=== PATIENT | female | born 1990 | race Caucasian/White ===

== ENCOUNTER 2017-12-26 20:28 | Inpatient (IN) | payer SELFPAY ==
[2017-12-27] MEDS ORDERED: MAGNESIUM HYDROXIDE 30 ML UDCUP PO PRN (00:17)
[2017-12-27] MEDS ORDERED: MAG HYDROX/AL HYDROX/SIMETH 30 ML UDCUP PO PRN (00:17)
[2017-12-27] MEDS: NICOTINE POLACRILEX 2 MG GUM B PRN ×2 (00:51→09:40)
[2017-12-27] MEDS: LORazepam 0.5 MG TAB PO PRN ×2 (00:51→09:53)
[2017-12-27] MEDS: ACETAMINOPHEN 325 MG TAB PO PRN (01:04)
[2017-12-27] MEDS: SERTRALINE HCL 100 MG TAB PO SCH (09:41)
[2017-12-27] MEDS: NICOTINE 21 MG/24 HR PATCH TD SCH (12:00)
[2017-12-27] MEDS ORDERED: PROMETHAZINE HCL 25 MG TAB PO PRN (13:18)
[2017-12-27] MEDS ORDERED: PROMETHAZINE HCL 25 MG SUPPR PR PRN (13:18)
[2017-12-27] MEDS ORDERED: THIAMINE HCL 100 MG TAB PO ONE ×2 (13:18→17:30)
[2017-12-27] MEDS: OXYMETAZOLINE 30 ML NASAL SPRAY EACHNARE PRN ×2 (15:08→19:14)
[2017-12-27] MEDS: chlordiazePOXIDE 25 MG CAP PO PRN (15:23)
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
--- NOTE | 2017-12-27 16:44 | BCON ---
[f rep st] BEHAVIORAL HEALTH CONSULTATION INTERNAL MEDICINE CONSULTATION DATE OF CONSULTATION: 12/27/2017 REFERRING PHYSICIAN: Julius Lombardo MD REASON FOR REFERRAL: Medical clearance for inpatient behavioral health stay. HISTORY OF PRESENT ILLNESS: This patient presented to [facility] in [place] complaining of hearing voices and suicidal ideation with thoughts of driving her car into other cars on the road. She was evaluated in the emergency department and transferred to [facility] for further psychiatric care. Currently, she is without any acute complaints. PAST MEDICAL HISTORY: Fibromyalgia, depression. PAST SURGICAL HISTORY: She has had wisdom teeth extracted. MEDICATIONS: Prior to admission: 1. Sertraline 100 mg daily, which had recently been increased from 50 mg daily. 2. Acetaminophen for fibromyalgia pain. SOCIAL HISTORY: She is and lives with her and 2 children. 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 She is a nonsmoker. She uses considerable alcohol. FAMILY HISTORY: There is a family history of schizophrenia. REVIEW OF SYSTEMS: She reports that she has had poor sleep. She says that the fibromyalgia pain interferes with her sleep and she awakens and has to change position. She says she cannot have her knees touching each other but sleeps with a large pillow between her knees. She denies symptoms of restless leg at night or periodic limb movements that awaken her. She currently has fibromyalgia pain and is satisfied with taking acetaminophen for now. She intends to see her primary care provider in the future for better pain control. She is recovering from an upper respiratory infection and has an occasional cough with occasional sputum. She denies dyspnea. Otherwise, a 10-point review of systems was negative. PHYSICAL EXAM: VITAL SIGNS: Blood pressure is 135/100, heart rate is 100, respiratory rate is 14, oxygen saturation is 96% on room air. Temperature is 36.3 degrees centigrade. Her weight is 72.6 kg for a body mass index of 26.6. GENERAL: This is a slightly overweight woman who appears her chronologic age, cooperative and in no acute distress. HEENT: She has multiple piercings including her tongue. Extraocular movements are intact. Pupils are equal, round, reactive to light. Mucous membranes are moist. Dentition is in good condition. She has an uncrowded airway, Mallampati class 1. Her tonsils are moderately enlarged. NECK: Supple. HEART: Regular rate and rhythm with no murmurs, rubs, or gallops. LUNGS: Clear to auscultation bilaterally. ABDOMEN : Soft, nontender, nondistended with normoactive bowel sounds. EXTREMITIES: There is no cyanosis, clubbing, or edema. Radial and dorsalis pedis pulses are 2+ bilaterally. NEUROLOGIC: She is alert and oriented x3. Cranial nerves 2- 12 are grossly intact. There is no focal weakness. Sensation is intact to light touch. Gait is within normal limits. There is no tremor. LABORATORY STUDIES: From the emergency department in [place], she had a very slightly elevated serum sodium of 146 and an elevated serum chloride at 111, and there was a low carbon dioxide at 18. There was an elevated anion gap at 17. Glucose was slightly elevated, but this was likely not fasting. Otherwise , renal function and electrolytes were within normal limits. Liver function tests were normal. Serum ethanol level was 249 mg/dL. Salicylates and acetaminophen were undetectable. Urine drug screen was negative for any substances of abuse. CBC showed an elevated white count at 12.4, there was no left shift. test was negative. EKG was normal. Urinalysis was dilute with a low specific gravity, there were small leukocytes, but otherwise was within normal limits. ASSESSMENT/RECOMMENDATIONS: 1. Mental health issues, pending further evaluation and management by Psychiatry and the mental health team. 2. Fibromyalgia, per her history. This may be exacerbated by sleep disturbance. Query whether alcohol use is contributing to sleep disturbance. Psychiatry might consider use of a tricyclic or duloxetine for dual affect on depression or anxiety as well as pain reduction in fibromyalgia. However, her mental health stabilization is first priority, so whatever is most appropriate for that is what should be used. She plans to follow up with a paint booth operator after her discharge. 3. Alcohol use disorder. She might benefit from specific substance abuse counseling. 4. Possible alcohol withdrawal with an elevated blood pressure and borderline tachycardia. She otherwise is currently without any signs or symptoms of alcohol withdrawal, including no diaphoresis and no tremor. She is being treated, however, with chlordiazepoxide and received lorazepam this morning. Continuing observation for signs or symptoms of alcohol withdrawal and use of benzodiazepine is appropriate. 5. Hypernatremia and anion gap are likely due to alcohol intoxication. There is no need for further testing. I see no medical contraindications for this patient's continued stay on the inpatient behavioral health unit or to any psychiatric medications or procedures. Thank you very much for including me in the care of this patient. Please do not hesitate to contact me or the hospitalist service should there be need for further medical evaluation. /[id number]/MODL MTDD
[2017-12-27] MEDS ORDERED: traZODone 50 MG TAB PO PRN (17:33)
[2017-12-27] MEDS: MELATONIN 3 MG TAB PO PRN (19:10)
[2017-12-27] MEDS: OLANZapine 5 MG TAB PO PRN (19:10)
[2017-12-28] MEDS: OXYMETAZOLINE 30 ML NASAL SPRAY EACHNARE PRN ×3 (05:59→19:22)
[2017-12-28] MEDS: chlordiazePOXIDE 25 MG CAP PO PRN (09:00)
[2017-12-28] MEDS: SERTRALINE HCL 100 MG TAB PO SCH (09:01)
[2017-12-28] MEDS: THIAMINE HCL 100 MG TAB PO SCH (09:01)
[2017-12-28] MEDS: MULTIVITAMINS 1 EACH TAB PO SCH (09:01)
[2017-12-28] MEDS: FOLIC ACID 1 MG TAB PO SCH (09:02)
[2017-12-28] MEDS: NICOTINE 21 MG/24 HR PATCH TD SCH (09:02)
[2017-12-28] MEDS: NICOTINE POLACRILEX 2 MG GUM B PRN (09:02)
[2017-12-28] MEDS: OLANZapine 5 MG TAB PO PRN ×2 (12:07→17:08)
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
[2017-12-28] MEDS: MELATONIN 3 MG TAB PO PRN (22:08)
[2017-12-29] MEDS: MULTIVITAMINS 1 EACH TAB PO SCH (08:31)
[2017-12-29] MEDS: SERTRALINE HCL 100 MG TAB PO SCH (08:31)
[2017-12-29] MEDS: THIAMINE HCL 100 MG TAB PO SCH (08:31)
[2017-12-29] MEDS: FOLIC ACID 1 MG TAB PO SCH (08:31)
[2017-12-29] MEDS: OXYMETAZOLINE 30 ML NASAL SPRAY EACHNARE PRN ×2 (08:32→18:35)
[2017-12-29] MEDS: NICOTINE 21 MG/24 HR PATCH TD SCH (08:33)
[2017-12-29] MEDS: OLANZapine 5 MG TAB PO PRN ×3 (09:01→21:07)
--- NOTE | 2017-12-29 13:52 | SOAPPROG ---
SOAP Progress Note Assessment/Plan: Assessment: 27 yo woman with h/o depression, anxiety, trauma, polysubstance dependence. Plan: 12/28/17 16:17 1. Continue on CIWA with Librium PRN 2. Patient also c/o "voices" that are usually just "mumbling" or back ground noise, but says they are "worse" when she isn't drinking alcohol. She took Zyprexa PRN last night and says they "went away." 3. Reports that melatonin was "helping" with her sleep. 4. Patient denies any SI/HI 12/29/17 13:47 1. Patient reports the "best night of sleep of my life" last night. She slept for 9.5 hrs. She says the combo of Zyprexa and melatonin were "wonderful." 2. Patient still reports "background white noise" and sometimes hearing music, but these are usually when she's following asleep or waking up. Not clear if these are psychotic features related to depression or just hypnogogic and hypnopompic hallucinations. She says taking Zyprexa "helps alot." 3. Plan to f/u at [facility] in [place]. 4. Agrees to sign in voluntary 5. Anticipate d/c on Sunday or Sunday Subjective: Met with patient, reviewed chart and d/w staff. Patient says she is sleeping "much better" and reports less anxiety. She denies any panic episodes. She also denies any w/d related sxs. Her CIWA this AM was 9, mostly for anxiety, which she says is "much worse in morning" and gets "better" throughout the day. Her BP was 122/77 and HR was 102. She says she still thinks about suicide, but denies any plan or intent to hurt herself. She is able to contract for safety. Objective: Vital Signs Temp Pulse Resp BP Pulse Ox 36.3 C 102 H 14 122/77 H 96 12/29/17 06:00 12/29/17 08:46 12/29/17 08:46 12/29/17 08:46 12/29/17 08:46 Laboratory Results 12/28/17 06:00 12/28/17 06:00 MSE: Affect: Euthymic Mood: "Better" TP: Linear TC: SI, but no plan or intent , contracts for safety Insight/Judgment: Fair - Time Spent With Patient Time Spent With Patient: 20" - Pending Discharge Pending Discharge Within 24 Hours: No Pending Discharge Within 48 Hours: No ICD10 Worksheet Patient Problems: Problems Problem Status Onset Alcohol use disorder, severe, dependence Acute Borderline personality disorder Acute Severe recurrent major depression with psychotic features Acute - ICD10 Problem Qualifiers (1) Severe recurrent major depression with psychotic features (2) Alcohol use disorder, severe, dependence (3) Borderline personality disorder
[2017-12-29] MEDS: chlordiazePOXIDE 25 MG CAP PO PRN (16:45)
[2017-12-29] MEDS: MELATONIN 3 MG TAB PO PRN (22:09)
[2017-12-30] MEDS: MULTIVITAMINS 1 EACH TAB PO SCH (08:10)
[2017-12-30] MEDS: THIAMINE HCL 100 MG TAB PO SCH (08:10)
[2017-12-30] MEDS: SERTRALINE HCL 100 MG TAB PO SCH (08:10)
[2017-12-30] MEDS: FOLIC ACID 1 MG TAB PO SCH (08:10)
[2017-12-30] MEDS: OXYMETAZOLINE 30 ML NASAL SPRAY EACHNARE PRN (08:10)
[2017-12-30] MEDS: OLANZapine 5 MG TAB PO PRN ×3 (08:11→21:13)
[2017-12-30] MEDS: NICOTINE 21 MG/24 HR PATCH TD SCH (08:22)
--- NOTE | 2017-12-30 16:08 | SOAPPROG ---
SOAP Progress Note Assessment/Plan: Assessment: 27 yo woman with h/o depression, anxiety, trauma, polysubstance dependence. Plan: 12/28/17 16:17 1. Continue on CIWA with Librium PRN 2. Patient also c/o "voices" that are usually just "mumbling" or back ground noise, but says they are "worse" when she isn't drinking alcohol. She took Zyprexa PRN last night and says they "went away." 3. Reports that melatonin was "helping" with her sleep. 4. Patient denies any SI/HI 12/29/17 13:47 1. Patient reports the "best night of sleep of my life" last night. She slept for 9.5 hrs. She says the combo of Zyprexa and melatonin were "wonderful." 2. Patient still reports "background white noise" and sometimes hearing music, but these are usually when she's following asleep or waking up. Not clear if these are psychotic features related to depression or just hypnogogic and hypnopompic hallucinations. She says taking Zyprexa "helps alot." 3. Plan to f/u at [facility] in [place]. 4. Agrees to sign in voluntary 5. Anticipate d/c on Sunday or Sunday12/30/17 16:04 1. Patient consented to start Gabapentin 100mg PO TID for anxiety 2. Patient is denying any sxs of alcohol related w/d. She has not scored on CIWA x > 24 hrs. Will d/c CIWA. 3. Patient reports AH have lessened with Zyprexa 4. Patient says she is no longer thinking about suicide 5. Likely to d/c on Sunday or Sunday Subjective: Met with patient, reviewed chart and d/w staff. Patient reports that she is feeling "much better" for past 24 hrs. She no longer reports having thoughts about suicide. She stated she would "never act" on thoughts b/c of her kids, but says she isn't even thinking about it now. She also reports having less hallucinations of music and "white noise" at night and in AM. She is taking Zyprexa throughout the day, but admits a lot of times she is taking it for "anxiety." MD recommended starting Gabapentin to address anxiety instead of using SGA. MD reviewed r/b/se's and patient consented to Gabapentin. Objective: Vital Signs Temp Pulse Resp BP Pulse Ox 36.6 C 89 16 107/67 94 12/30/17 10:00 12/30/17 10:00 12/30/17 10:00 12/30/17 10:00 12/30/17 10:00 Laboratory Results 12/28/17 06:00 12/28/17 06:00 MSE: Affect: Euthymic Mood: "Good" TP: Linear TC: Denies SI/HI, hallucinations are "better" Insight/Judgment: Fair - Time Spent With Patient Time Spent With Patient: 20" - Pending Discharge Pending Discharge Within 24 Hours: No Pending Discharge Within 48 Hours: No ICD10 Worksheet Patient Problems: Problems Problem Status Onset Alcohol use disorder, severe, dependence Acute Borderline personality disorder Acute Severe recurrent major depression with psychotic features Acute - ICD10 Problem Qualifiers (1) Severe recurrent major depression with psychotic features (2) Alcohol use disorder, severe, dependence (3) Borderline personality disorder
[2017-12-30] MEDS: GABAPENTIN 100 MG CAP PO SCH ×2 (17:20→21:58)
[2017-12-30] MEDS: MELATONIN 3 MG TAB PO PRN (21:58)
[2017-12-31] MEDS: OLANZapine 5 MG TAB PO PRN ×2 (05:28→13:15)
[2017-12-31] MEDS: MULTIVITAMINS 1 EACH TAB PO SCH (08:17)
[2017-12-31] MEDS: GABAPENTIN 100 MG CAP PO SCH ×3 (08:17→21:10)
[2017-12-31] MEDS: FOLIC ACID 1 MG TAB PO SCH (08:17)
[2017-12-31] MEDS: SERTRALINE HCL 100 MG TAB PO SCH (08:18)
[2017-12-31] MEDS: NICOTINE 21 MG/24 HR PATCH TD SCH (08:18)
[2017-12-31] MEDS: IBUPROFEN 200 MG TAB PO PRN (11:57)
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
[2017-12-31] MEDS ORDERED: NALTREXONE HCL 50 MG TAB PO ONE (14:46)
[2017-12-31] MEDS: OXYMETAZOLINE 30 ML NASAL SPRAY EACHNARE PRN ×2 (15:59→20:17)
[2017-12-31] MEDS: PROPRANOLOL HCL 10 MG TAB PO PRN (19:03)
[2017-12-31] MEDS: OLANZapine 10 MG TAB PO SCH (21:10)
[2018-01-01] MEDS: PROPRANOLOL HCL 10 MG TAB PO PRN (06:42)
[2018-01-01] MEDS: OXYMETAZOLINE 30 ML NASAL SPRAY EACHNARE PRN (08:00)
[2018-01-01 08:18] LABS: PLATELET COUNT 302 10^3/uL (150-400)
[2018-01-01] MEDS: NICOTINE 21 MG/24 HR PATCH TD SCH (09:04)
[2018-01-01] MEDS: FOLIC ACID 1 MG TAB PO SCH (09:05)
[2018-01-01] MEDS: GABAPENTIN 100 MG CAP PO SCH (09:06)
[2018-01-01] MEDS: SERTRALINE HCL 100 MG TAB PO SCH (09:06)
[2018-01-01] MEDS: MULTIVITAMINS 1 EACH TAB PO SCH (09:06)
[2018-01-01] MEDS: NALTREXONE HCL 50 MG TAB PO SCH (09:06)
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
[2018-01-01] MEDS: GABAPENTIN 300 MG CAP PO SCH ×3 (14:04→21:35)
[2018-01-01] MEDS: diphenhydrAMINE 25 MG CAP PO PRN (15:12)
[2018-01-01] MEDS: SODIUM CL NASAL 45 ML BTL EACHNARE PRN ×2 (15:13→17:13)
[2018-01-01] MEDS: FLUTICASONE NASAL 120 SPRAYS/16 GM MDI EACHNARE SCH (16:07)
[2018-01-01] MEDS: FERROUS SULFATE 325 MG TAB PO SCH (17:03)
[2018-01-01] MEDS: PRAZOSIN HCL 1 MG CAP PO SCH (21:34)
[2018-01-01] MEDS: OLANZapine 10 MG TAB PO SCH (21:35)
[2018-01-02] MEDS: diphenhydrAMINE 25 MG CAP PO PRN (02:46)
[2018-01-02] MEDS: SODIUM CL NASAL 45 ML BTL EACHNARE PRN (02:46)
[2018-01-02] MEDS: PRAZOSIN HCL 1 MG CAP PO PRN ×2 (02:46→12:21)
[2018-01-02] MEDS: NICOTINE POLACRILEX 2 MG GUM B PRN (06:42)
[2018-01-02] MEDS: FLUTICASONE NASAL 120 SPRAYS/16 GM MDI EACHNARE SCH (08:06)
[2018-01-02] MEDS: NICOTINE 21 MG/24 HR PATCH TD SCH (08:07)
[2018-01-02] MEDS: MULTIVITAMINS 1 EACH TAB PO SCH (08:08)
[2018-01-02] MEDS: FERROUS SULFATE 325 MG TAB PO SCH ×2 (08:08→16:31)
[2018-01-02] MEDS: FOLIC ACID 1 MG TAB PO SCH (08:08)
[2018-01-02] MEDS: GABAPENTIN 300 MG CAP PO SCH ×3 (08:09→20:34)
[2018-01-02] MEDS: NALTREXONE HCL 50 MG TAB PO SCH (08:09)
[2018-01-02] MEDS: SERTRALINE HCL 100 MG TAB PO SCH (11:15)
[2018-01-02] MEDS: IBUPROFEN 200 MG TAB PO PRN ×2 (12:20→18:54)
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
[2018-01-02] MEDS: ACETAMINOPHEN 325 MG TAB PO PRN ×2 (16:28→21:28)
--- NOTE | 2018-01-02 17:14 | SOAPPROG ---
SOAP Progress Note Assessment/Plan: Assessment: Likely odontogenic infection. Will prescribe amoxicillin 500 mg p.o. Three times daily which she reports has worked previously for dental infections. She reports she has an appointment with a dentist on 01/04/2018. Will increase ibuprofen prescription from 400 mg Q 6 hr p.r.n. To 600 mg q.6 hours p.r.n.. 01/02/18 17:14 Subjective: Asked to see patient regarding toothache. She reports pain in her right maxillary posterior molar. She said she had prior extractions of 4 molars due dental infections that were caused by methamphetamine abuse and that this pain feels the same. Objective: Vital Signs Temp Pulse Resp BP Pulse Ox 36.6 C 108 H 12 139/70 H 97 01/01/18 06:48 01/02/18 14:00 01/02/18 14:00 01/02/18 14:00 01/02/18 14:00 Laboratory Results 01/01/18 06:05 12/28/17 06:00 Physical Exam - Physical Exam General Appearance: WD/WN, alert, no apparent distress EENT: pharynx normal, other (Right posterior maxillary molar with yellow plaque noted especially on the bill aspect. Minimal erythema to the vehicle gum. Lingual aspect of tooth and appear normal. Lymphadenopathy at angle of jaw.) ICD10 Worksheet Patient Problems: Problems Problem Status Onset Allergic rhinitis Acute Posttraumatic stress disorder Acute History of hallucinogen abuse Acute Severe recurrent major depression with psychotic features Acute Alcohol use disorder, severe, dependence Acute
[2018-01-02] MEDS: PRAZOSIN HCL 1 MG CAP PO SCH (20:32)
[2018-01-02] MEDS ORDERED: CETIRIZINE 10 MG TAB PO SCH (21:00)
[2018-01-02] MEDS: OLANZapine 10 MG TAB PO SCH (21:27)
[2018-01-02] MEDS: MELATONIN 3 MG TAB PO PRN (21:27)
[2018-01-03] MEDS: PRAZOSIN HCL 1 MG CAP PO PRN (06:35)
[2018-01-03] MEDS: GABAPENTIN 300 MG CAP PO SCH ×2 (09:49→13:14)
[2018-01-03] MEDS: NICOTINE 21 MG/24 HR PATCH TD SCH (09:49)
[2018-01-03] MEDS: FOLIC ACID 1 MG TAB PO SCH (09:49)
[2018-01-03] MEDS: NALTREXONE HCL 50 MG TAB PO SCH (09:50)
[2018-01-03] MEDS: FERROUS SULFATE 325 MG TAB PO SCH (09:50)
[2018-01-03] MEDS: SERTRALINE HCL 100 MG TAB PO SCH (09:50)
[2018-01-03] MEDS: MULTIVITAMINS 1 EACH TAB PO SCH (09:51)
[2018-01-03] MEDS: FLUTICASONE NASAL 120 SPRAYS/16 GM MDI EACHNARE SCH (11:01)
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
[2018-01-03] MEDS: IBUPROFEN 200 MG TAB PO PRN (12:15)
[2018-01-03 12:34] VITALS: BP 159/96; PULSE 103; RESP 12; TEMP 98.1; O2SAT 94
== END 2018-01-03 16:00 | disposition home or self-care (01) | DRG 885 ==
LOC: BBEH 23:50
PROVIDERS: ADMIT Psychiatry & Neurology Psychiatry; ATTEND Psychiatry & Neurology Psychiatry
DX: F33.3 Major depressive disorder, recurrent, severe with psychotic symptoms (principal); F10.239 Alcohol dependence with withdrawal, unspecified; F43.0 Acute stress reaction; F43.10 Post-traumatic stress disorder, unspecified; J30.9 Allergic rhinitis, unspecified; K04.7 Periapical abscess without sinus; Z72.0 Tobacco use; Z97.5 Presence of (intrauterine) contraceptive device

== ENCOUNTER → 2018-12-05 | Outpatient (CLI) | payer MEDICAID | LOC: FIMAGING 09:34 | PROVIDERS: ATTEND Internal Medicine | DX: N63.23 Unspecified lump in the left breast, lower outer quadrant (principal) ==